=== PATIENT | female | born 2000 | race Caucasian/White ===

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

== ENCOUNTER 2019-07-29 04:41 | Inpatient (IN) | payer MEDICAID ==
[~2019-07-29] VITALS: Ht 167.6 cm; Wt 68.2 kg
[2019-07-29] VITALS (30 sets, daily range): BP systolic 86–124; BP diastolic 51–79; PULSE 66–117; TEMP 97.4–98
[~2019-07-29 04:41] MED LIST: MOTRIN 800800 MG/TAB PO; PERCOCET 325 MG1 TA2 PO
--- NOTE | 2019-07-29 05:00 | NUR ---
0500 G2L1 37.1 WEEKS TO LR4 WITH C/O CONTRACTIONS STARTING AT 0200. EFM ON. SVE /-2. BOW INTACT. ADM ASSESSMENT DONE. 514 DR GROVE NOTIFIED.
--- NOTE | 2019-07-29 05:20 | NUR ---
0520 IV STARTED ON SECOND TRY IN LEFT HAND. ANESTHSIA CALLED FOR EPID PLACEMENT.
--- NOTE | 2019-07-29 05:45 | NUR ---
6198 SITTING ON SIDE OF BED FOR EPID PLACEMENT. SEE ANESTHSIA RECORD FOR MORE INFORMATION
[2019-07-29 05:46] LABS: BASO % 0.3 % (0.0-2.0); EOS # 0.2 (0.0-0.7); GRAN # 7.3 (1.4-6.5); GRAN % 76.1 % (42.2-75.2); HEMOGLOBIN 10.6 g/dl (12.5-16.0); LYMPH # 1.2 (1.2-3.4); LYMPH % 12.9 % (20.0-51.0); MEAN CELL VOLUME 88 fl (80.0-100.0); MEAN CORPUSCULAR HEMOGLOBIN 30 pg (27.0-31.0); MEAN CORPUSCULAR HGB CONC 34 g/dl (33.0-37.0); MEAN PLATELET VOLUME 11.5 fl (7.4-10.4); MONO # 0.8 (0.1-0.6); MONO % 8.4 % (1.7-9.3); PLATELET COUNT 204 K/mm3 (130-400); RED BLOOD COUNT 3.56 M/mm3 (4.10-5.30); REDCELL DISTRIBUTION WIDTH-CV 12.4 % (11.5-14.5)
[2019-07-29 05:48] LABS: HEMATOCRIT 31.3 % (37.0-47.0)
--- NOTE | 2019-07-29 06:15 | NUR ---
0615-Recieved bedside shift report from DAHIANA Gabriel. Patient reports 'epidural working.' IVF infusing into left hand IV. Denies needs. 0630-SVE 7-/-2, 0644-Dr. Lin updated, see MD notification, [id number] late decels 0651-10mg ephedrine per protocol and anesthesia order. 0652-Patient vommiting 0659-4mg IV zofran given, see EMAR. 0720-White to DD, clear yellow urine, SVE /-1 Repositioned WR with peanut ball. 0810-Dr. Lin to room, SVE 9/100/0 AROM clear flulid. Brittany care provided. Repositioned WL with peanutball.
--- NOTE | 2019-07-29 08:56 | NUR ---
0856-E C/100/+2, Brittany care provided. Sitting upright, Christopher D/Adrien, notified Dr. Lin who is on unit.
--- NOTE | 2019-07-29 09:10 | NUR ---
0910-Dr. Lin to patient room. Set up for delviery. 0914-Patient begins pushing with Dr. Lin at bedside. Moves vertex well. 18-Spontaneous delviery of head immediately followed by body. Viable femal infant nares and mouth bulb suctioned by Dr. Lin, cord clamped x2 and cut by MD. Infant taken to warmer per parent request and cleaned off. Care of assumed by DAHIANA Nolasco. 21-Spontaneous delviery of intact placenta by Dr. Lin. Fundal massage firm. Lochia WNL, EBL 200ml. Pitocin bolus per MD orders and protocol. Peric care provided. Updated on safety and plan of care.
--- NOTE | 2019-07-29 11:45 | NUR ---
1145-Patient ambulates with steady gait to bathroom, voids clear yellow urine. Pericare assited. New gown provided. Ambulates with steady gait to Room 207. Oriented to room, Denies needs. Updated on plan of care.
[2019-07-30 02:40] VITALS: BP 90/53; PULSE 62; TEMP 97.9
[2019-07-30] MEDS ORDERED: PERCOCET 325 MG1 TA2 PO (08:19)
[2019-07-30] MEDS ORDERED: IBU800 M1 PO (08:19)
[2019-07-30 09:55] VITALS: BP 109/62; PULSE 89; TEMP 97.3
== END 2019-07-30 15:00 | disposition home or self-care (01) | DRG 807 ==
LOC: LDRO 04:41 → LDR 04:41 → LDRO 05:13 → OB 11:45
PROVIDERS: Obstetrics & Gynecology; ADMIT Obstetrics & Gynecology
PROC: 10E0XZZ Delivery of Products of Conception, External Approach (ICD-10-PCS; principal; 2019-07-29)
PROC: 0HQ9XZZ Repair Perineum Skin, External Approach (ICD-10-PCS; 2019-07-29)
PROC: 10907ZC Drainage of Amniotic Fluid, Therapeutic from Products of Conception, Via Natural or Artificial Opening (ICD-10-PCS; 2019-07-29)
DX: O70.0 First degree perineal laceration during delivery (principal); Z37.0 Single live birth; Z3A.37 37 weeks gestation of pregnancy
CPT/HCPCS: J2405; J2590; J2795; J7120